=== PATIENT | female | born 1980 | race Caucasian/White ===

== ENCOUNTER 2016-05-20 18:48 | Emergency (ER) | payer OTHER ==
[2016-05-20 18:56] VITALS: TEMP 98.3; BMI 27.6
--- NOTE | 2016-05-20 18:56 | PDOC ---
Rapid Medical Evaluation Time Seen by Provider: 05/20/16 18:50 Medical Evaluation: Allergies Allergy/AdvReac Type Severity Reaction Status Date / Time No Known Allergies Allergy Verified 04/20/15 16:22 05/20/16 18:50 35 yo F c/o pelvis and low back pain x5-6 hours with slight vag bleed x2hr. Lmp: Feb 16, 2016
[2016-05-20 19:43] LABS: BASOPHIL 0.6 % (0-2.0); EOSINOPHIL 1.5 % (0-4.5); MCH 31.9 pg (25.7-33.7); MCHC 34.5 g/dl (32.0-36.0); MEAN CELL VOLUME 92.4 fl (80-96); MEAN PLT VOLUME 10.6 fl (7.5-11.1); NEUTROPHILS 56.9 % (42.8-82.8); PLATELET COUNT 167 K/MM3 (134-434); WHITE BLOOD COUNT 6.2 K/mm3 (4.0-10.0)
[2016-05-20 19:43] LABS: URINE APPEARANCE SLCLOUDY; URINE BILIRUBIN NEGATIVE (NEGATIVE); URINE BLOOD NEGATIVE (NEGATIVE); URINE COLOR LTYELLOW; URINE GLUCOSE (UA) NEGATIVE (NEGATIVE); URINE KETONE NEGATIVE (NEGATIVE); URINE LEUK ESTERASE NEGATIVE (NEGATIVE); URINE NITRITE NEGATIVE (NEGATIVE); URINE PROTEIN NEGATIVE (NEGATIVE); URINE UROBILINOGEN NEGATIVE E.U./dl (0.2-1.0)
--- NOTE | 2016-05-20 21:46 | PDOC ---
History of Present Illness <Brenda Oden - Last Filed: 05/20/16 21:58> - History of Present Illness Initial Comments: 05/20/16 21:50 The patient is a 35 year old 12 week female with a past medical hx of post who presents to the ED complaining of suprapubic and lower back pain since 1300 this afternoon. She rates the pain as a 6/10. The patient notes associated vaginal bleeding and reports she went through two pads since this afternoon. She states the pain is not similar to her menstrual pain, and reports it is much worse. The patient states she has seen her OB two times since she has been . She states her OB says it is too early to hear the heartbeat but notes no problems thus far. The patient denies nausea, vomiting, diarrhea The patient denies fever, chills, dysuria <Maile Hein - Last Filed: 05/20/16 21:58> - General Chief Complaint: Vaginal Bleeding Stated Complaint: VAGINAL BLEEDING/12 WKS Time Seen by Provider: 05/20/16 18:50 Past History - Past Medical History Asthma: No Cancer: No Cardiac Disorders: No Diabetes: No HTN: No Suicide Attempt (Hx): No Seizures: No Thyroid Disease: No Other medical history: DENIES. - Surgical History Abdominal Surgery: Yes (ABD HERNIA) - Reproductive History (#): 6 Para: 3 - Psycho/Social/Smoking Cessation Hx Anxiety: No Suicidal Ideation: No Smoking History: Never smoked Have you smoked in the past 12 months: No Hx Alcohol Use: No Drug/Substance Use Hx: No Substance Use Type: None Hx Substance Use Treatment: No <Brenda Oden - Last Filed: 05/20/16 21:58> <Maile Hein - Last Filed: 05/20/16 21:58> - Past Medical History Allergies/Adverse Reactions: Allergies Allergy/AdvReac Type Severity Reaction Status Date / Time No Known Allergies Allergy Verified 05/20/16 18:52 Home Medications: Ambulatory Orders Iron 325 mg PO DAILY 01/30/15 Ibuprofen [Motrin -] 800 mg PO TID #30 tablet 04/20/15 Review of Systems - Review of Systems Able to Perform ROS?: Yes Comments:: 05/20/16 21:50 CONSTITUTIONAL: Absent: fever, chills, diaphoresis, generalized weakness, malaise, loss of appetite HEENT: Absent: rhinorrhea, nasal congestion, throat pain, throat swelling, difficulty swallowing, mouth swelling, ear pain, eye pain, visual Changes CARDIOVASCULAR: Absent: chest pain, syncope, palpitations, irregular heart rate, lightheadedness , peripheral edema RESPIRATORY: Absent: cough, shortness of breath, dyspnea with exertion, orthopnea, wheezing, stridor, hemoptysis GASTROINTESTINAL: +Suprapubic pain. Absent:abdominal distension, nausea, vomiting, diarrhea, constipation, melena, hematochezia GENITOURINARY: +Vaginal bleeding. Absent: dysuria, frequency, urgency, hesitancy, hematuria, flank pain, genital pain MUSCULOSKELETAL: +Lower back pain. Absent: joint swelling SKIN: Absent: rash, itching, pallor NEUROLOGIC: Absent: headache, focal weakness or paresthesias, dizziness, unsteady gait, seizure, mental status changes, bladder or bowel incontinence PSYCHIATRIC: Absent: anxiety, depression, suicidal or homicidal ideation, hallucinations. <Maile Hein - Last Filed: 05/20/16 21:58> *Physical Exam - Vital Signs Last Vital Signs Temp Pulse Resp BP Pulse Ox 98.3 F 70 19 131/79 98 05/20/16 18:52 05/20/16 18:52 05/20/16 18:52 05/20/16 18:52 05/20/16 18:52 <Brenda Oden - Last Filed: 05/20/16 21:58> - Vital Signs Last Vital Signs Temp Pulse Resp BP Pulse Ox 98.3 F 70 19 131/79 98 05/20/16 18:52 05/20/16 18:52 05/20/16 18:52 05/20/16 18:52 05/20/16 18:52 - Physical Exam Comments: 05/20/16 21:51 GENERAL: Well developed, well nourished. Awake and alert. No acute distress. HEENT: Normocephalic, atraumatic. PERRLA, EOMI. No conjunctival pallor. Sclera are non- icteric. Moist mucous membranes. Oropharynx is clear. NECK: Supple. Full ROM. No JVD. Carotid pulses 2+ and symmetric, without bruits. No thyromegaly. No lymphadenopathy. CARDIOVASCULAR: Regular rate and rhythm. No murmurs, rubs, or gallops. Distal pulses are 2+ and symmetric. PULMONARY: No evidence of respiratory distress. Lungs clear to auscultation bilaterally. No wheezing, rales or rhonchi. ABDOMINAL: +Mild suprapubic tenderness. Soft. Non-distended. No rebound or guarding. No organomegaly. Normoactive bowel sounds. MUSCULOSKELETAL +Left and right CVA tenderness. Normal range of motion at all joints. No bony deformitie. EXTREMITIES: No cyanosis. No clubbing. No edema. No calf tenderness. SKIN: Warm and dry. Normal capillary refill. No rashes. No jaundice. NEUROLOGICAL: Alert, awake, appropriate. Cranial nerves 2-12 intact. No deficits to light touch and temperature in face, upper extremities and lower extremities. No motor deficits in the in face, upper extremities and lower extremities. PSYCHIATRIC: Cooperative. Good eye contact. Appropriate mood and affect. <Maile Hein - Last Filed: 05/20/16 21:58> ED Treatment Course - LABORATORY CBC & Chemistry Diagram: 05/20/16 19:05 - ADDITIONAL ORDERS Additional order review: Laboratory Results 05/20/16 05/20/16 19:24 19:05 Beta HCG, Quant 3503.7 Urine Color Ltyellow Urine Appearance Slcloudy Urine pH 6.0 Ur Specific Isabel 1.025 Urine Protein Negative Urine Glucose (UA) Negative Urine Ketones Negative Urine Blood Negative Urine Nitrite Negative Urine Bilirubin Negative Urine Urobilinogen Negative Ur Leukocyte Esterase Negative 05/20/16 19:05 RBC 3.82 MCV 92.4 MCHC 34.5 RDW 14.0 MPV 10.6 Neutrophils % 56.9 Lymphocytes % 33.5 D Monocytes % 7.5 Eosinophils % 1.5 Basophils % 0.6 <Brenda Oden - Last Filed: 05/20/16 21:58> - LABORATORY CBC & Chemistry Diagram: 05/20/16 19:05 - ADDITIONAL ORDERS Additional order review: Laboratory Results 05/20/16 05/20/16 19:24 19:05 Beta HCG, Quant 3503.7 Urine Color Ltyellow Urine Appearance Slcloudy Urine pH 6.0 Ur Specific Isabel 1.025 Urine Protein Negative Urine Glucose (UA) Negative Urine Ketones Negative Urine Blood Negative Urine Nitrite Negative Urine Bilirubin Negative Urine Urobilinogen Negative Ur Leukocyte Esterase Negative 05/20/16 19:05 RBC 3.82 MCV 92.4 MCHC 34.5 RDW 14.0 MPV 10.6 Neutrophils % 56.9 Lymphocytes % 33.5 D Monocytes % 7.5 Eosinophils % 1.5 Basophils % 0.6 - RADIOLOGY Radiograph Interpretation: 05/20/16 21:58 Obstetrical ultrasound Clinical information: vaginal bleeding / pain, LMP 02/15 The study was performed utilizing transvaginal and transabdominal scanning. The study demonstrates a single intrauterine gestation at approximately 9 weeks 4 days on the basis of crown-rump length. No cardiac activity is identified. A yolk sac is noted. A 1.7 cm right ovarian cyst is noted. The left ovary appears unremarkable. There is no Doppler evidence of ovarian torsion, sensitivity 70%. No definite adnexal pathology is seen. There is no free intraperitoneal fluid within the lower pelvis. Impression: A single nonviable intrauterine gestation is seen at approximately 9 weeks 4 days. No cardiac activity is identified. Reported By: Kirk Caban MD 05/20/162119 <Maile Hein - Last Filed: 05/20/16 21:58> Medical Decision Making - Medical Decision Making 05/20/16 21:51 35 yo female p/w pelvic pain BHCG 3503 UA negative for infection cbc is wnl, no anemia transvaginal ultrasound - intrauterine gestation with NO CARDIAC ACTIVITY of 9 weeks 4 days IMP DEMISE <Brenda Oden - Last Filed: 05/20/16 21:58> *DC/Admit/Observation/Transfer <Brenda Oden - Last Filed: 05/20/16 21:58> - Attestations Scribe Attestion: 05/20/16 21:50 Documentation prepared by Maile Hein, acting as bilingual medical receptionist for Brenda Oden MD/DO. <Maile Hein - Last Filed: 05/20/16 21:58> Diagnosis at time of Disposition: demise - Discharge Dispostion Disposition: HOME - Referrals Referrals: Myra Cannon MD [Primary Care Provider] - - Patient Instructions Printed Discharge Instructions: DI for Threatened Additional Instructions: See your multimedia engineer this week for further treatment Print Language: YORUBA
[2016-05-20 22:29] VITALS: BP 132/70; PULSE 80
== END 2016-05-20 22:29 | disposition home or self-care (01) ==
LOC: JER 18:48
DX: O02.1 Missed abortion (principal); N83.291 Other ovarian cyst, right side; Z3A.09 9 weeks gestation of pregnancy
CPT/HCPCS: 36415; 76801-TC; 81003; 84702; 85025; 86850; 86900; 86901; 99282-25

== ENCOUNTER 2016-05-26 16:10 | Emergency (ER) | payer OTHER ==
--- NOTE | 2016-05-26 16:18 | PDOC ---
Rapid Medical Evaluation Chief Complaint: Vaginal Bleeding Time Seen by Provider: 05/26/16 16:14 Medical Evaluation: Allergies Allergy/AdvReac Type Severity Reaction Status Date / Time No Known Allergies Allergy Verified 05/26/16 16:14 05/26/16 16:14 RME Note: I have performed a brief, in-person evaluation of this patient . This patient presents with CC: 13aginal bleeding, weeks , LLQ abd. pain with v Pertinent PE findings are: With CVA tenderness with LLQ tenderness; VSS I have ordered: labs The patient will proceed to ED for further evaluation. Deep
[2016-05-26 16:23] VITALS: BP 117/68; PULSE 75; TEMP 97.7; BMI 27.8
[2016-05-26] MEDS ORDERED: LIDOCAINE HCL 2% (20ML MULTI-DOSE VIAL) NR ONE (16:48)
--- NOTE | 2016-05-26 17:00 | PDOC ---
History of Present Illness - General Chief Complaint: Vaginal Bleeding Stated Complaint: 13WKS/VAGINAL BLEEDING Time Seen by Provider: 05/26/16 16:14 History Source: Patient - History of Present Illness Initial Comments: 05/26/16 17:26 35 yo F, , ~13 weeks by dates, seen in ED 1 week ago for abd pain w/ vag bleed. Beta was >3K w/ +IUP c/w 9 weeks w/ no cardiac activity, has since f/u with her rf test engineer at [facility] w/ rpt US again w/ no cardiac activity detected. States she was told to f/u next week for D&C but returns to ED today requesting rpt blood work for unclear reasons. States she went to [facility] today but that staff resufedrefused to do blood work. No vag bleed currently and no sig abd pain per pt. Denies dysuria, n/v/f/c Past History - Past Medical History Allergies/Adverse Reactions: Allergies Allergy/AdvReac Type Severity Reaction Status Date / Time No Known Allergies Allergy Verified 05/26/16 16:14 Home Medications: Ambulatory Orders Iron 325 mg PO DAILY 01/30/15 Ibuprofen [Motrin -] 800 mg PO TID #30 tablet 04/20/15 Asthma: No Cancer: No Cardiac Disorders: No Diabetes: No HTN: No Suicide Attempt (Hx): No Seizures: No Thyroid Disease: No Other medical history: none - Surgical History Abdominal Surgery: Yes (ABD HERNIA) - Reproductive History (#): 6 Para: 3 - Psycho/Social/Smoking Cessation Hx Anxiety: No Suicidal Ideation: No Smoking History: Never smoked Have you smoked in the past 12 months: No Information on smoking cessation initiated: No Hx Alcohol Use: No Drug/Substance Use Hx: No Substance Use Type: None Hx Substance Use Treatment: No Review of Systems - Review of Systems Constitutional: No: Chills, Fever ABD/GI: Yes: Abdominal cramping. No: Nausea, Vomiting : No: Dysuria Musculoskeletal: Yes: Back Pain *Physical Exam - Vital Signs Last Vital Signs Temp Pulse Resp BP Pulse Ox 97.7 F 75 18 117/68 100 05/26/16 16:14 05/26/16 16:14 05/26/16 16:14 05/26/16 16:14 05/26/16 16:14 - Physical Exam General Appearance: Yes: Appropriately Dressed. No: Apparent Distress HEENT: positive: Normal Voice Neck: positive: Supple Respiratory/Chest: negative: Respiratory Distress Gastrointestinal/Abdominal: positive: Soft Integumentary: positive: Dry, Warm Neurologic: positive: Fully Oriented, Alert, Normal Mood/Affect ED Treatment Course - RADIOLOGY Radiology Studies Ordered: Category Date Time Status <14WKS US [US] Stat Ultrasound 05/26/16 16:48 Ordered Medical Decision Making - Medical Decision Making 05/26/16 16:57 35 yo F, multipara, ~13 weeks by dates w/ nonviable preg on US in ED last week ( +IUP @ 9 weeks w/ no cardiac activity), scheduled for D&C next week per pt , here requesting rpt beta for unclear reasons. No vag bleed currently. Beta > 3k and O+ on T&S on last visit. Exam unremarkable -rpt beta pending 05/26/16 17:27 05/26/16 18:13 Beta 1251 today, down from >3 K last week. No need for rpt US in ED. Will dc w/ rf test engineer f/u for D&C next week 05/26/16 18:18 *DC/Admit/Observation/Transfer Diagnosis at time of Disposition: Non-viable - Discharge Dispostion Disposition: HOME Condition at time of disposition: Stable - Patient Instructions Additional Instructions: El nivel de hormona en la marty de hoy era 1251 abajo de ms de 3000 hace ynes semana. Neal ultrasonido hace ynes semana demostr que neal feto no merlin ninguna actividad cardaca. Thor significa que neal embarazo es inviable o anormal. Necesita hacer un seguimiento con neal gineclogo para neal D & C la prxima semana.
[2016-05-26 18:54] LABS: URINE APPEARANCE CLOUDY; URINE BILIRUBIN NEGATIVE (NEGATIVE); URINE COLOR YELLOW; URINE GLUCOSE (UA) NEGATIVE (NEGATIVE); URINE KETONE NEGATIVE (NEGATIVE); URINE LEUK ESTERASE NEGATIVE (NEGATIVE); URINE NITRITE NEGATIVE (NEGATIVE); URINE PROTEIN NEGATIVE (NEGATIVE); URINE UROBILINOGEN NEGATIVE E.U./dl (0.2-1.0)
[2016-05-26 19:03] LABS: URINE BLOOD 3+ (NEGATIVE)
[2016-05-26 19:05] LABS: URINE BACTERIA RARE /hpf (NONE SEEN); URINE RBC 48 /hpf (0-3); URINE WBC 4 /hpf (3-5)
== END 2016-05-26 18:20 | disposition home or self-care (01) ==
LOC: JER 16:10
DX: O02.1 Missed abortion (principal); Z3A.13 13 weeks gestation of pregnancy
CPT/HCPCS: 36415; 81003; 81015; 84702; 84703; 99282-25

== ENCOUNTER 2016-08-27 10:04 | Day surgery (SDC) | payer OTHER ==
[2016-08-26 14:42] VITALS: BMI 26.4
[~2016-08-27 10:04] MED LIST: ACETAMINOPHEN 325 MG TABLET (FP) PO PRN; BSS (NA/CA/MG/K) BALANCED SALT SOLUTION OPHTH SOLN 15 ML BOTTLE OD ONE; CIPROFLOXACIN HCL 0.3% OPHTH 2.5ML BOTTLE OP SCH; LIDOCAINE 1%/EPI 1:100000 (50 ML MULTI DOSE VIAL) INF ONE; POVIDONE-IODINE 5% OPHTHALMIC PREP 30 ML SOLUTION OD ONE; TETRACAINE 0.5% OPHTH SOLN 2 ML BOTTLE OD ONE; TRIAMCINOLONE ACET 40MG/1ML VIAL IJ ONE
[2016-08-27] MEDS ORDERED: LIDOCAINE 1%/EPI 1:100000 (50 ML MULTI DOSE VIAL) ONE (10:09)
[2016-08-27] MEDS ORDERED: CIPROFLOXACIN 0.3% EYE DROPS 5 ML BOTTLE ONE (10:13)
[2016-08-27 10:29] VITALS: TEMP 97.9
[2016-08-27] MEDS ORDERED: MIDAZOLAM HCL 2 MG/2 ML SINGLE DOSE VIAL ONE (10:32)
[2016-08-27] MEDS ORDERED: LIDOCAINE HCL 2% JELLY (5 ML/TUBE) OD ONE (10:40)
[2016-08-27] MEDS ORDERED: POVIDONE-IODINE 5% OPHTHALMIC PREP 30 ML SOLUTION OD ONE (10:57)
[2016-08-27] MEDS ORDERED: LIDOCAINE 1%/EPI 1:100000 (50 ML MULTI DOSE VIAL) INF ONE (11:03)
[2016-08-27] MEDS ORDERED: BSS (NA/CA/MG/K) BALANCED SALT SOLUTION OPHTH SOLN 15 ML BOTTLE OD ONE (11:03)
[2016-08-27] MEDS ORDERED: TRIAMCINOLONE ACET 40MG/1ML VIAL IJ ONE (11:24)
[2016-08-27 12:48] VITALS: BP 115/68; PULSE 66
--- NOTE | 2016-08-28 13:59 | OP ---
DATE OF OPERATION: 08/27/2016 SURGEON: Jaylan Noe M.D. PREOPERATIVE DIAGNOSIS: Pterygium, right eye. POSTOPERATIVE DIAGNOSIS: Pterygium, right eye. PROCEDURE: Excision of pterygium with conjunctival autografting, right eye. ANESTHESIA: Topical MAC. COMPLICATONS: None. DESCRIPTION OF PROCEDURE: The patient was brought into the operating room and correctly identified along with the operative site. She was then prepped and draped in the usual sterile fashion including 5% Betadine solution in the conjunctival sac and an eyelid drape. An eyelid speculum was then placed into the right eye. The pterygium was inspected, and the borders were marked using a marking pen. Two relaxing incisions were made in the conjunctiva superior and inferior to the pterygium. The pterygium was then bluntly dissected from the corneal surface using Colibri forceps as well as Weck-Louise Pascal. The corneal surface was then polished using a 57 blade as well as musa ten. No residual tissue was noted on the cornea. Dissection of the pterygium had been placed down to bare sclera, and the pterygium was then excised at its base. Care was taken not to damage the medial rectus tendon by elevating the pterygium during excision. The conjunctival autograft was measured and measured 5 x 5 mm. Attention was then placed to the superotemporal conjunctiva, and appropriately sized conjunctival autograft was created by injecting lidocaine 1% with epinephrine subconjunctivally. This graft was then removed and placed in the nasal conjunctival autograft at the pterygium excision site and sutured into place with six 10-0 nylon sutures. At the end of this, it was seen the graft was noted to be well positioned, no wound gate noted. Subconjunctival Kenalog was injected nasally. Topical vancomycin given, the eye patch, and the patient discharged from the operating room in a stable condition. JAYLAN NOE M.D. [id number]
--- NOTE | 2016-08-28 14:55 | PATH ---
Surgical Pathology Report Patient Name: SHIV DUEÑAS [facility]. Rec. #: [id number] /Age/Gender: 1980 (Age: 35) / F Account: [id number] Location: [facility] SURGICAL Taken: 08/27/2016 Received: 08/27/2016 Reported: 08/28/2016 Physicians: Jaylan Best M.D. Specimen(s) Received PTERYGIUM RIGHT EYE Clinical History Pterygium right eye Final Diagnosis CONJUNCTIVA, RIGHT EYE, EXCISION: CONJUNCTIVA WITH DEGENERATIVE CHANGES CONSISTENT WITH PTERYGIUM. Electronically Signed Servando Maguire M.D. Gross Description Received in formalin, labeled "pterygium right eye" is a sánchez, irregular portion of soft tissue measuring 0.6 cm. in greatest dimension. The specimen is submitted in toto in one cassette. 08/27/201608/27/2016
== END 2016-08-27 14:00 | disposition home or self-care (01) ==
LOC: JASU-SURG 10:04
PROVIDERS: ATTEND Ophthalmology
PROC: 08R8X7Z Replacement of Right Cornea with Autologous Tissue Substitute, External Approach (ICD-10-PCS; principal; 2016-08-27 10:00)
DX: H11.001 Unspecified pterygium of right eye (principal)
CPT/HCPCS: 84703; 88304-TC

== ENCOUNTER 2018-01-20 08:20 | Inpatient (IN) | payer OTHER ==
[2018-01-20] MEDS ORDERED: ACETAMINOPHEN 325 MG TABLET (FP) PO PRN (09:52)
[2018-01-20 09:53] VITALS: BMI 30.4
[2018-01-20] MEDS ORDERED: PROMETHAZINE HCL 25 MG/1 ML VIAL IVPUSH ONE (09:53)
[2018-01-20] MEDS ORDERED: ELECTROLYTE-148 SOLN 1,000 ML IV SCH (10:00)
[2018-01-20 10:05] LABS: BASO % 0.4 % (0-2.0); EOS % 0.8 % (0-4.5); HEMATOCRIT 35.4 % (32.4-45.2); HEMOGLOBIN 12.1 GM/dL (10.7-15.3); LYMPH % 17.8 % (8-40); MCH 32.1 pg (25.7-33.7); MCHC 34.3 g/dl (32.0-36.0); MEAN CELL VOLUME 93.5 fl (80-96); MEAN PLT VOLUME 10.5 fl (7.5-11.1); MONO % 5.6 % (3.8-10.2); NEUT % 75.4 % (42.8-82.8); PLATELET COUNT 162 K/MM3 (134-434); RBC 3.79 M/mm3 (3.60-5.2); RDW 12.9 % (11.6-15.6); WHITE BLOOD COUNT 7.5 K/mm3 (4.0-10.0)
[2018-01-20] MEDS: MISOPROSTOL 200 MCG TABLET PO SCH ×4 (10:10→22:00)
[2018-01-20 10:26] LABS: INR 1.03 (0.83-1.09); PROTHROMBIN TIME (PATIENT) 12.1 SEC (9.7-13.0)
[2018-01-20 10:29] LABS: ACTIVATED PTT 24.2 SECONDS (25.2-36.5)
[2018-01-20 10:46] LABS: ANION GAP 11 MMOL/L (8-16); BLOOD UREA NITROGEN 10 mg/dL (7-18); CHLORIDE 107 mmol/L (98-107); CO2 23 mmol/L (21-32); CREATININE 0.5 mg/dL (0.55-1.3); GLUCOSE,RANDOM 88 mg/dL (74-106); POTASSIUM 3.8 mmol/L (3.5-5.1); SODIUM 141 mmol/L (136-145)
[2018-01-20] MEDS: BUTORPHANOL TARTRATE 1 MG/ML VIAL IVPB PRN ×2 (11:15→15:30)
--- NOTE | 2018-01-20 12:17 | HP ---
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 Seen by MFM 12/31 for anatomy sono which showed abnl cardiac features; referred for echo which showed Pulmonary atresia on 01/08. Patient went for second opinion/repeat sonogram on 01/18 showing demise, hydropic infant. No bleeding or cramping. Highly desired History Source: Patient - Past Medical History Hepatobiliary: Yes: Choledocholithiasis ...: 9 ...Para: 4 ...Term: 4 ...: 0 ...Spon : 4 ...Induced : 0 ...Multiple Gestation: 0 ...LMP: 08/17/17 ... Weeks Gestation by Dates: 22.1 ...EDC by Dates: 05/24/18 ...EDC by Sono: 05/24/18 Heme/Onc: Yes: Anemia, Thrombocytopenia Infectious Disease: No: AIDS, C-Diff, Herpes Zoster, HIV, MRSA, STD's, Tuberculosis, VREF, Other - Past Surgical History Past Surgical History: Yes: Hernia Repair (umblical hernia repair) Hx Myomectomy: No Hx Transabdominal Cerclage: No - Smoking History Smoking history: Never smoked Have you smoked in the past 12 months: No - Alcohol/Substance Use Hx Alcohol Use: No History of Substance Use: reports: None - Social History Usual Living Arrangement: Yes: With Spouse History of Recent Travel: No Home Medications - Allergies Allergies/Adverse Reactions: Allergies Allergy/AdvReac Type Severity Reaction Status Date / Time No Known Allergies Allergy Verified 01/20/18 10:33 - Home Medications Home Medications: Ambulatory Orders Aspirin 81 mg PO DAILY 01/20/18 19 Tablet 1 tab PO DAILY 01/20/18 Physical Exam - Maternity Vital Signs: Vital Signs Temperature 98.7 F 01/20/18 10:00 Pulse Rate 76 01/20/18 11:00 Respiratory Rate 20 01/20/18 11:00 Blood Pressure 106/60 01/20/18 11:00 O2 Sat by Pulse Oximetry (%) Constitutional: Yes: Well Nourished Eyes: Yes: WNL, Conjunctiva Clear, EOM Intact - Abdominal Exam/OB Number of Fetuses: Single Contractions: No Monitor Mode: None - Vaginal Exam/OB Vaginal Bleediing: No Speculum Exam: No Amniotic Membrane Status: Intact Presentation: Vertex/Position Station: -3 - Labs Lab Results: CBC, BMP 01/20/18 09:55 01/20/18 09:55 Problem List - Problems (1) demise Code(s): [id number] - Assessment/Plan 37yo @ 22.1wks here for IOL for demise Admit to L&D Cytotec IOL Stadol prn Discussed options of autopsy/funera/ hospital disposal- pt to consider options Keri Carbone MD
[2018-01-20] MEDS ORDERED: PROMETHAZINE HCL 25 MG/1 ML VIAL ONE (15:22)
[2018-01-20] MEDS ORDERED: BUTORPHANOL TARTRATE 1 MG/ML VIAL ONE ×2 (15:22)
--- NOTE | 2018-01-20 18:20 | PN ---
Progress Note, Labor Vaginal Exam #1 Labor Exam Date: 01/20/18 Labor Exam Time: 18:19 Dilatation: 1 Effacement (%): 0 Amniotic Membrane Status: Intact Station: -3 Remarks: Cytotec #3 given Cervix long/1 Stadol prn pain Anticipate
[2018-01-21] MEDS ORDERED: PROMETHAZINE HCL 25 MG/1 ML VIAL ONE (00:20)
[2018-01-21] MEDS ORDERED: BUTORPHANOL TARTRATE 1 MG/ML VIAL ONE ×2 (00:20)
[2018-01-21] MEDS ORDERED: OXYTOCIN 20 UNITS in 0.9% NS 20 UNIT/1,000 ML INFUS.BAG IV ONE (00:42)
--- NOTE | 2018-01-21 00:53 | PN ---
Delivery - Delivery Vaginal Delivery: Spontaneous Type of Anesthesia: None Episiotomy/Laceration: None EBL (cc): 50 Delivery, Single - Stages of Labor Date Placenta Delivered: 01/21/18 Placenta: Yes: Spontaneous - Condition of Infant Assistant Health Educator/Annual Campaign Manager Present: No Infant Gender: Female - [place] Feeding Plan Benefits of Exclusively reinforced: No Remarks - Remarks Remarks: of non viable female infant. No nuchal. Weight pending. Apgars 0/0. Spontaneous delivery of placenta. Normal appearing cord. Cord clamped and cut. placed on maternal abdomen. Fundus firm. Pitocin given. Perineum inspected, no lacerations. EBL 50ml.
[2018-01-21] MEDS ORDERED: ACETAMINOPHEN 325 MG TABLET (FP) PO PRN (00:54)
[2018-01-21] MEDS ORDERED: BENZOCAINE 20% 57 GM BOTTLE TP PRN (00:54)
[2018-01-21] MEDS ORDERED: IBUPROFEN 600 MG TABLET (FP) PO PRN (00:54)
[2018-01-21] MEDS ORDERED: WITCH HAZEL 50% (TUCKS) 40 PAD/JAR PAD TP PRN (00:54)
[2018-01-21] MEDS ORDERED: OXYTOCIN 20 UNITS in 0.9% NS 20 UNIT/1,000 ML INFUS.BAG IV SCH (01:00)
[2018-01-21] MEDS ORDERED: BUTORPHANOL TARTRATE 1 MG/ML VIAL IVPB ONE (02:45)
[2018-01-21] MEDS ORDERED: PROMETHAZINE HCL 25 MG/1 ML VIAL IVPB ONE (02:45)
[2018-01-21] MEDS: MISOPROSTOL 200 MCG TABLET PO SCH (04:59)
[2018-01-21] MEDS ORDERED: LOPERAMIDE HCL 2 MG CAPSULE PO PRN (10:30)
--- NOTE | 2018-01-21 10:38 | DS ---
Physical Examination Vital Signs: Vital Signs Temperature 98.5 F 01/21/18 07:42 Pulse Rate 68 01/21/18 07:42 Respiratory Rate 20 01/21/18 07:42 Blood Pressure 106/73 01/21/18 07:42 O2 Sat by Pulse Oximetry (%) Findings/Remarks: Normal PP exam Labs: CBC, BMP 01/20/18 09:55 01/20/18 09:55 Discharge Summary Reason For Visit: INDUCTION OF LABOR Condition: Good - Instructions Diet, Activity, Other Instructions: Regular Diet Please follow up in the office in 2 weeks Referrals: Keri Carbone MD [Staff Physician] - Disposition: HOME - Home Medications Comprehensive Discharge Medication List: Ambulatory Orders 19 Tablet 1 tab PO DAILY 01/20/18
--- NOTE | 2018-01-21 10:39 | PN ---
Post Progress Note Type of Delivery: Vital Signs: Vital Signs Temperature 98.5 F 01/21/18 07:42 Pulse Rate 68 01/21/18 07:42 Respiratory Rate 20 01/21/18 07:42 Blood Pressure 106/73 01/21/18 07:42 O2 Sat by Pulse Oximetry (%) Uterus: Yes: Fundus below umbilicus Lochia, amount: Small Extremities: Yes: Calves non-tender Perineum: Yes: Intact Activity: Ambulating (Coping appropriately) - Labs Labs: CBC WBC 7.5 K/mm3 (4.0-10.0) 01/20/18 09:55 RBC 3.79 M/mm3 (3.60-5.2) 01/20/18 09:55 Hgb 12.1 GM/dL (10.7-15.3) 01/20/18 09:55 Hct 35.4 % (32.4-45.2) 01/20/18 09:55 MCV 93.5 fl (80-96) 01/20/18 09:55 MCH 32.1 pg (25.7-33.7) 01/20/18 09:55 MCHC 34.3 g/dl (32.0-36.0) 01/20/18 09:55 RDW 12.9 % (11.6-15.6) 01/20/18 09:55 Plt Count 162 K/MM3 (134-434) 01/20/18 09:55 MPV 10.5 fl (7.5-11.1) 01/20/18 09:55 Absolute Neuts (auto) 5.7 K/mm3 (1.5-8.0) 01/20/18 09:55 Neutrophils % 75.4 % (42.8-82.8) D 01/20/18 09:55 Lymphocytes % 17.8 % (8-40) D 01/20/18 09:55 Monocytes % 5.6 % (3.8-10.2) 01/20/18 09:55 Eosinophils % 0.8 % (0-4.5) 01/20/18 09:55 Basophils % 0.4 % (0-2.0) 01/20/18 09:55 Nucleated RBC % 0 % (0-0) 01/20/18 09:55 Problem List - Problems (1) demise Code(s): [id number] - Assessment/Plan 37yo s/p at 22wks, IUFD Regular diet Routine PP [facility]CI today, follow up in office in 2 weeks Tessy Carbone MD
[2018-01-21] MEDS ORDERED: LOPERAMIDE HCL 2 MG CAPSULE PO ONE (11:00)
[2018-01-21 13:11] VITALS: BP 122/77; PULSE 73; TEMP 98.3
--- NOTE | 2018-01-22 17:57 | PATH ---
Surgical Pathology Report Patient Name: JANINA DUEÑAS Med. Rec. #: [id number] /Age/Gender: 1980 (Age: 37) / F Account: [id number] Location: [facility] OBS/ROENTGENOLOGIST Taken: 01/21/2018 Received: 01/21/2018 Reported: 01/22/2018 Physicians: Keri Carbone Specimen(s) Received PLACENTA Clinical History demise, 22.2 weeks gestation 2 deliveries, 4 spontaneous abortions History of preeclampsia History of hernia surgery Final Diagnosis PLACENTA, DELIVERY: 192 G SECOND TRIMESTER PLACENTA WITH TRIVASCULAR UMBILICAL CORD AND UNREMARKABLE PLACENTAL MEMBRANES. Electronically Signed Janina Johnson M.D. Gross Description The specimen is received fresh labeled placenta and is a 192 gram, 12 x 10 x 1 cm. placenta with attached membranes and umbilical cord. The attached membranes are sánchez, cloudy and insert marginally. The umbilical cord is red, dusky, edematous, measures 32 cm. in length and averages 1.5 cm. in diameter. The cord inserts eccentrically, 3 cm. to the nearest margin. No true knots or strictures are identified. Cut surface of the umbilical cord reveals 3 vessels. The surface is villatoro-blue with focal fibrin deposition and appropriate caliber vessels. The maternal surface is red-brown with focal defects. Sectioning reveals red-brown, spongy parenchyma. No lesions are identified. Mixed Animal Veterinarian sections are submitted in three cassettes as follows: 1- membrane rolls and umbilical cord; 2-3- full thickness sections of placenta. MLSZ/01/21/2018 sanjuli/01/21/2018
== END 2018-01-21 13:00 | disposition home or self-care (01) | DRG 560 ==
LOC: JLDR 08:20 → J3W 01-21 03:44
PROVIDERS: ADMIT Obstetrics & Gynecology; ATTEND Obstetrics & Gynecology
PROC: 10E0XZZ Delivery of Products of Conception, External Approach (ICD-10-PCS; principal; 2018-01-21)
DX: O36.4XX0 Maternal care for intrauterine death, not applicable or unspecified (principal); Z3A.22 22 weeks gestation of pregnancy; Z37.1 Single stillbirth
CPT/HCPCS: 36415; 59409; 80048; 85025; 85610; 85730; 86593; 86850; 86900; 86901; 88307-TC

== ENCOUNTER 2018-03-19 13:08 | Emergency (ER) | payer OTHER ==
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
[2018-03-19 13:40] VITALS: BP 113/66; PULSE 86; TEMP 97.8; BMI 24.5
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
== END 2018-03-19 15:35 | disposition home or self-care (01) ==
LOC: JERFT 13:08
DX: S09.8XXA Other specified injuries of head, initial encounter (principal); S05.11XA Contusion of eyeball and orbital tissues, right eye, initial encounter; G44.89 Other headache syndrome; Y04.2XXA Assault by strike against or bumped into by another person, initial encounter; Y93.89 Activity, other specified; Y92.59 Other trade areas as the place of occurrence of the external cause; Y99.8 Other external cause status; Y07.59 Other non-family member, perpetrator of maltreatment and neglect
CPT/HCPCS: 70450-TC; 70480-TC; 72125-TC; 84703; 99281-25